=== PATIENT | male | born 1960 | race Caucasian/White ===

== ENCOUNTER → 2020-10-16 | Outpatient (CLI) | payer OTHER | LOC: RAD 10:17 | DX: S82.401A Unspecified fracture of shaft of right fibula, initial encounter for closed fracture (principal); S52.92XA Unspecified fracture of left forearm, initial encounter for closed fracture; X58.XXXA Exposure to other specified factors, initial encounter; Y93.89 Activity, other specified; Y92.89 Other specified places as the place of occurrence of the external cause; Y99.8 Other external cause status ==

== ENCOUNTER → 2020-11-18 | Outpatient (CLI) | payer OTHER | LOC: RAD 08:25 | PROVIDERS: ATTEND Chiropractor | DX: M25.832 Other specified joint disorders, left wrist (principal) ==